=== PATIENT | female | born 1960 | race Caucasian/White ===

== ENCOUNTER 2016-12-26 16:01 | Emergency (ER) | payer MEDICAID ==
[~2016-12-26] VITALS: Ht 165.1 cm; Wt 122.0 kg
[2016-12-26 16:45] VITALS: BP 181/87; PULSE 60; RESP 16; TEMP 98; O2SAT 99
--- NOTE | 2016-12-26 18:56 | PD ---
HPI Chief Complaint: Musculoskeletal Complaint Time Seen by Provider: 18:46 Travel History International Travel<30 days: No Contact w/Intl Traveler<30days: No Traveled to known affect area: No History of Present Illness HPI The patient was seen and examined in the presence of the nurse. This patient complains of right sided back pain. Duration is one week. She woke up with it one morning. There was no injury. She denies cough or shortness of breath or fever. Moving her torso makes the pain worse. Severity is moderate. No alleviating factors. PFSH Past Medical History Asthma: Yes Anxiety: Yes (MYSOPHOBIA) High Cholesterol: Yes Psychiatric: Yes (MYSOPHOBIA:FEAR OF GERMS) Tetanus Vaccination: Unknown Influenza Vaccination: Yes ?: Not Past Surgical History Joint Replacement: Yes (LEFT HIP) Social History Alcohol Use: No Tobacco Use: Yes (TRYING TO QUIT) Substance Use: No Allergies-Medications (Allergen,Severity, Reaction): Coded Allergies: No Known Allergies (Unverified , 12/26/16) Review of Systems General / Constitutional: No: Fever Eyes: No: Visual changes HENT: No: Headaches Cardiovascular: No: Chest Pain or Discomfort Respiratory: No: Shortness of Breath Gastrointestinal: No: Abdominal Pain Genitourinary: No: Dysuria Musculoskeletal: Positive: Pain Skin: No Rash Neurologic: No: Weakness Psychiatric: No: Depression Endocrine: No: Polydipsia Hematologic/Lymphatic: No: Easy Bruising Physical Exam Narrative GENERAL: Well-nourished, well-developed patient in no apparent distress. SKIN: Warm and dry. HEAD: Atraumatic. Normocephalic. EYES: Pupils equal and round. No scleral icterus. No injection or drainage. ENT: No nasal bleeding or discharge. Mucous membranes pink and moist. NECK: Trachea midline. No JVD. CARDIOVASCULAR: Regular rate and rhythm. No murmur appreciated. RESPIRATORY: No accessory muscle use. Clear to auscultation. Breath sounds equal bilaterally. GASTROINTESTINAL: Abdomen soft, non-tender, nondistended. Hepatic and splenic margins not palpable. MUSCULOSKELETAL: No obvious deformities. No clubbing. No cyanosis. No edema. Examination the back reveals no midline tenderness. There is no bruising or muscle spasm or asymmetry. She has readily reproducible tenderness of the right mid back underneath the right scapula. This reproduces her pain complaint. NEUROLOGICAL: Awake and alert. No obvious cranial nerve deficits. Motor grossly within normal limits. Normal speech. PSYCHIATRIC: Appropriate mood and affect; insight and judgment normal. Data Data Last Documented VS Vital Signs Date Time Temp Pulse Resp B/P Pulse Ox O2 Delivery O2 Flow Rate FiO2 12/26/16 16:45 98.0 60 16 181/87 99 MDM Medical Decision Making Medical Screen Exam Complete: Yes Emergency Medical Condition: Yes Medical Record Reviewed: Yes Differential Diagnosis Muscle spasm, sciatica, nonspecific musculoskeletal pain, PE Narrative Course I have reviewed the patient's electronic medical record. Unclear why this patient has one week of right sided mid back pain. It is readily reproducible with palpation. She has a heart rate of 60 and excellent saturations and is not short of breath, all of these things lead me away from a diagnosis of PE. She has no history of blood clot. She had hip surgery but that was 3 months ago. She is ambulatory and active. I am ordering her an injection of morphine and Zofran for symptom relief. I'm going to obtain a chest x-ray. Case is checked out to Dr. Chen at 7 PM to assist with disposition after evaluation is complete. Edvin Siu MD Dec 26, 2016 18:56
[2016-12-26] MEDS ORDERED: KETOROLAC TROMETHAMINE 60 MG/2 ML (IM) VIAL IM ONE (19:00)
[2016-12-26] MEDS ORDERED: ONDANSETRON HCL 4 MG/2 ML VIAL IM ONE (19:00)
[2016-12-26] MEDS ORDERED: MORPHINE SULFATE 4 MG/ML INJ IM ONE (19:00)
[2016-12-26] MEDS ORDERED: SYMB160A INH (19:07)
[2016-12-26] MEDS ORDERED: ROPI2TAB PO (19:07)
[2016-12-26] MEDS ORDERED: GABA100C4 PO (19:07)
[2016-12-26] MEDS ORDERED: TRAZ100T4 PO (19:07)
[2016-12-26] MEDS ORDERED: IMIP50TA PO (19:07)
--- NOTE | 2016-12-26 19:17 | PD ---
Physical Exam Date Seen by Provider: Dec 26, 2016 Time Seen by Provider: 19:16 Narrative Accepted in transfer of care from Dr. Siu GENERAL: Well-developed well-nourished female appears mildly anxious in no respiratory distress SKIN: Warm and dry. HEAD: Normocephalic. EYES: No scleral icterus. No injection or drainage. NECK: Supple, trachea midline. No JVD or lymphadenopathy. CARDIOVASCULAR: Regular rate and rhythm without murmurs, gallops, or rubs. RESPIRATORY: Breath sounds equal bilaterally. No accessory muscle use. GASTROINTESTINAL: Abdomen soft, non-tender, nondistended. MUSCULOSKELETAL: No cyanosis, or edema. BACK: Reproducible tenderness to the right medial scapula musculature without ecchymosis no vesicular rash no crepitus no induration no erythema no fluctuance without obvious deformity. No CVA tenderness. Data Data Last Documented VS Vital Signs Date Time Temp Pulse Resp B/P Pulse Ox O2 Delivery O2 Flow Rate FiO2 12/26/16 22:52 52 18 161/75 99 Room Air 12/26/16 16:45 98.0 Orders Ondansetron Inj (Zofran Inj) (12/26/16 19:00) Ketorolac Inj (Toradol Inj) (12/26/16 19:00) Morphine Inj (Morphine Inj) (12/26/16 19:00) Chest, Single Ap (12/26/16 ) ^ Saline Lock (12/26/16 20:23) D-Dimer (12/26/16 20:23) Basic Metabolic Panel (Bmp) (12/26/16 20:23) Ct Pulmonary Angiogram (12/26/16 ) Sodium Chlorid 0.9% 500 Ml Inj (Ns 500 M (12/26/16 21:45) Iohexol 350 Inj (Omnipaque 350 Inj) (12/26/16 22:55) Labs Laboratory Tests Test 12/26/16 20:30 D-Dimer Quantitative (PE/DVT) 0.76 MG/L FEU Sodium Level 143 MEQ/L Potassium Level 3.8 MEQ/L Chloride Level 108 MEQ/L Carbon Dioxide Level 27.1 MEQ/L Anion Gap 8 MEQ/L Blood Urea Nitrogen 14 MG/DL Creatinine 0.78 MG/DL Estimat Glomerular Filtration 77 ML/MIN Rate Random Glucose 123 MG/DL Calcium Level 9.6 MG/DL [facility] Medical Record Reviewed: Yes Supervised Visit with EMELINA: No Interpretation(s) d-dimer, 0.76, elevated Last Impressions Chest X-Ray 12/26/16 0000 Signed Impressions: Service Date/Time: Monday, December 26, 2016 18:58 - CONCLUSION: Cardiomegaly. Sav Sánchez MD CBC & BMP Diagram 12/26/16 20:30 CT pulmonary angiogram: CONCLUSION: 1. No pulmonary blister. 2. 7 mm nodule in the right lower lobe. This is nonspecific. It can be followed with a noncontrast CT examination in 6 months. 3. Mild pericardial effusion. 4. Left adrenal gland adenomas. Sav Sánchez MD on December 26, 2016 at 22:58 Board Certified Radiologist. This report was verified electronically. Differential Diagnosis Please refer Dr. Siu's dictation Narrative Course Accepted in transfer of care from Dr. Siu follow-up of pending chest x-ray and patient disposition Chest x-ray reveals cardiomegaly otherwise no obvious abnormality; patient is informed of imaging results and states that she is very fearful she has a blood clot at this point time she is not tachycardic she has reproducible pain suspicion for PE is low however patient is at 3 months status post hip replacement and did have a fall within the past 2 weeks without chest injury. Patient does complain of painful respirations secondary to increases pain in her back but is not complaining of shortness of breath. No report of hemoptysis or fever. Will proceed with d-dimer. D-dimer elevated we'll proceed with CT pulmonary angiogram CT pulmonary angiogram negative for PE nodule noted with recommendation for outpatient follow-up in 6 months patient informed of results in stable for outpatient management Diagnosis Primary Impression: Musculoskeletal back pain Additional Impression: Pulmonary nodule Referrals: Primary Care Physician call for appointment Patient Instructions: Narcotic given in the ED, General Instructions Additional Instruction: Take medications as prescribed as needed apply moist heat to area follow-up with your primary care physician return to the emergency department for any concerns or change in condition Med/Other Pt SpecificInfo: Prescription(s) given Scripts Ibuprofen 800 Mg [id number] Mg PO Q8H PRN (PAIN GREATER THAN 6) #12 TAB Ref 0 Prov:Saida Chen MD 12/26/16 Hydrocodone-Acetaminophen (Lortab)5-325 Mg Tab1 Tab PO Q6H PRN (PAIN) #10 TAB Ref 0 Prov:Saida Chen MD 12/26/16 Methocarbamol (Robaxin)750 Mg [id number] Mg PO Q6HR #12 TAB Ref 0 Prov:Saida Chen MD 12/26/16 Disposition: 01 DISCHARGE HOME Condition: Stable Saida Chen MD Dec 26, 2016 19:17
--- NOTE | 2016-12-26 19:19 | RADHPO ---
EXAM DATE/TIME: 12/26/2016 18:58 [facility] COMPARISON: No previous studies available for comparison. INDICATIONS : Right sided chest pain that started a week ago. MEDICAL HISTORY : Asthma. SURGICAL HISTORY : None. ENCOUNTER: Initial ACUITY: 1 week PAIN SCORE: 10/10 LOCATION: Right chest. FINDINGS: The heart size is enlarged. The lungs are grossly clear. Significant effusion is not seen. CONCLUSION: Cardiomegaly. Sav Sánchez MD on December 26, 2016 at 19:16 Board Certified Radiologist. This report was verified electronically.
[2016-12-26 20:55] LABS: POTASSIUM 3.8 MEQ/L (3.5-5.1)
[2016-12-26 21:00] LABS: BICARBONATE 27.1 MEQ/L (21.0-32.0)
[2016-12-26] MEDS ORDERED: SODIUM CHLORID 0.9% 500 ML INJ 500 ML IV ONE (21:45)
[2016-12-26 22:52] VITALS: BP 161/75; PULSE 52; RESP 18; O2SAT 99
[2016-12-26] MEDS ORDERED: IOHEXOL 350 MG/ML 10 ML VIAL (for RAD DIAG) IV ONE (22:55)
--- NOTE | 2016-12-26 23:06 | RADHPO ---
EXAM DATE/TIME: 12/26/2016 22:31 [facility] COMPARISON: No previous studies available for comparison. INDICATIONS : Short of breath. IV CONTRAST: 65 cc Omnipaque 350 (iohexol) IV RADIATION DOSE: 21.91 CTDIvol (mGy) MEDICAL HISTORY : Asthma SURGICAL HISTORY : None. ENCOUNTER: Initial ACUITY: 1 day PAIN SCALE: 4/10 LOCATION: cranial TECHNIQUE: Volumetric scanning of the chest was performed using a pulmonary embolism protocol MIP images were re constructed. Using automated exposure control and adjustment of the mA and/or kV according to patien t size, radiation dose was kept as low as reasonably achievable to obtain optimal diagnostic quality images. FINDINGS: PULMONARY ARTERIES: No filling defects are seen in the pulmonary arteries through the segmental level. LUNGS: There is a 7 mm nodule in the posterior right lower lobe. There some patchy areas of increased densit y seen in the lateral right upper lobe and minimally at the posterior bases. These areas likely repre sent atelectasis. PLEURAE: There is no pleural thickening or pleural effusion. MEDIASTINUM: There is good visualization of the great vessels of the middle mediastinum. No evidence of mediastin al or hilar adenopathy/mass. There is a mild pericardial effusion. MUSCULOSKELETAL: Within normal limits for patient age. MISCELLANEOUS: The visualized upper abdominal organs demonstrate 2 left adrenal masses. The one at the medial limb m easures 3.2 cm dimension and -15 Hounsfield units. The mass at the lateral limb measures 1.7 cm and 4 Hounsfield units. These are both consistent with adenomas. no acute abnormality. CONCLUSION: 1. No pulmonary blister. 2. 7 mm nodule in the right lower lobe. This is nonspecific. It can be followed with a noncontrast CT examination in 6 months. 3. Mild pericardial effusion. 4. Left adrenal gland adenomas. Sav Sánchez MD on December 26, 2016 at 22:58 Board Certified Radiologist. This report was verified electronically.
[2016-12-26] MEDS ORDERED: ROBA750T PO (23:12)
[2016-12-26] MEDS ORDERED: IBUP800T23 PO (23:12)
[2016-12-26] MEDS ORDERED: HYDR-3533 PO (23:12)
== END 2016-12-26 23:28 | disposition home or self-care (01) ==
LOC: PHED 16:01 → PHEFT 23:28
DX: M54.6 Pain in thoracic spine (principal); R91.1 Solitary pulmonary nodule; E78.00 Pure hypercholesterolemia, unspecified; Z72.0 Tobacco use; Z87.09 Personal history of other diseases of the respiratory system; Z86.59 Personal history of other mental and behavioral disorders
CPT/HCPCS: 71010; 71275; 80048; 85379; 96360; 96372; 99284; J1885; J2270; J2405; J7040; Q9967

== ENCOUNTER 2017-01-17 11:39 | Emergency (ER) | payer MEDICAID ==
[~2017-01-17] VITALS: Ht 165.1 cm; Wt 121.0 kg
[~2017-01-17 11:39] MED LIST: GABA100C4 PO; HYDR-3533 PO; IBUP800T23 PO; IMIP50TA PO; ROBA750T PO; ROPI2TAB PO; SYMB160A INH; TRAZ100T4 PO
[2017-01-17 11:44] VITALS: BP 148/94; PULSE 95; RESP 20; TEMP 98.2; O2SAT 97
--- NOTE | 2017-01-17 12:30 | PD ---
HPI Chief Complaint: Musculoskeletal Complaint Time Seen by Provider: 12:30 Travel History International Travel<30 days: No Contact w/Intl Traveler<30days: No Traveled to known affect area: No History of Present Illness HPI 56-year-old female presents the emergency department with ongoing right-sided upper back and shoulder discomfort which she's had approximately one month. Patient was seen in the middle of December with similar complaints, and underwent a full workup including chest x-ray and CT scan without significant findings. Patient was treated on an outpatient basis with ibuprofen , Lortab, and Flexeril. States this treatment did not help whatsoever. She continues to have pain, difficulty with moving her right arm, and difficulty sleeping secondary to spasms in her right shoulder. Fever, chills, rash, or other symptoms. Patient does have a history of Lyme disease for which she was treated in a prolonged course in [place] several years ago. Patient denies injury for the current symptoms. Patient describes the pain as a dull ache which is worse with movement. She has muscle spasm but no numbness or tingling. Her pain is moderate. She has no known drug allergies. PFSH Past Medical History Asthma: Yes Anxiety: Yes (MYSOPHOBIA) High Cholesterol: Yes Psychiatric: Yes (MYSOPHOBIA:FEAR OF GERMS) ?: Not Past Surgical History Joint Replacement: Yes (LEFT HIP) Social History Alcohol Use: No Tobacco Use: Yes (TRYING TO QUIT) Substance Use: No Allergies-Medications (Allergen,Severity, Reaction): Coded Allergies: No Known Allergies (Unverified , 01/17/17) Reported Meds & Prescriptions Reported Meds & Active Scripts Active Ibuprofen 800 Mg Tab 800 Mg PO Q8H PRN Lortab (Hydrocodone-Acetaminophen) 5-325 Mg Tab 1 Tab PO Q6H PRN Robaxin (Methocarbamol) 750 Mg Tab 750 Mg PO Q6HR Reported Imipramine HCL (Imipramine HCl) 50 Mg Tab 50 Mg PO HS Gabapentin 100 Mg Cap 100 Mg PO TID Trazodone (Trazodone HCl) 100 Mg Tab 100 Mg PO HS Ropinirole 2 Mg Tab 2 Mg PO HS Symbicort Inh (Budesonide/Formoterol Fumarate) 160-4.5 Mcg/Act Aero 1 Puff INH Q12HR Review of Systems Except as stated in HPI: all other systems reviewed are Neg General / Constitutional: No: Fever Eyes: No: Visual changes HENT: No: Headaches Cardiovascular: No: Chest Pain or Discomfort Respiratory: No: Shortness of Breath Gastrointestinal: No: Abdominal Pain Genitourinary: No: Dysuria Musculoskeletal: No: Pain Skin: No Rash Neurologic: No: Weakness Psychiatric: No: Depression Endocrine: No: Polydipsia Hematologic/Lymphatic: No: Easy Bruising Physical Exam Narrative GENERAL: Patient appears in mild to moderate distress. SKIN: Warm and dry. Normal color. Normal turgor. No rash. HEAD: Atraumatic. Normocephalic. EYES: Pupils equal and round. No scleral icterus. No injection or drainage. ENT: No nasal bleeding or discharge. Mucous membranes pink and moist. Pharynx is normal. Airway is patent. NECK: Trachea midline. No JVD. Supple and nontender without significant lymphadenopathy. CARDIOVASCULAR: Regular rate and rhythm. RESPIRATORY: No accessory muscle use. Clear to auscultation. Breath sounds equal bilaterally. GASTROINTESTINAL: Abdomen soft, non-tender, nondistended. Hepatic and splenic margins not palpable. MUSCULOSKELETAL: Extremities without clubbing, cyanosis, or edema. No obvious deformities. Patient has soft tissue tenderness and spasm on the right upper shoulder, trapezius, subscapularis, and scalenes which is reproducible and consistent with the patient's current chief complaint. Range of motion is full with limited only by discomfort. Patient has normal vp & general counsel strength and sensation in the right arm. NEUROLOGICAL: Awake and alert. No obvious cranial nerve deficits. Motor grossly within normal limits. Five out of 5 muscle strength in the arms and legs. Normal speech. PSYCHIATRIC: Appropriate mood and affect; insight and judgment normal. Data Data Last Documented VS Vital Signs Date Time Temp Pulse Resp B/P Pulse Ox O2 Delivery O2 Flow Rate FiO2 01/17/17 11:44 98.2 95 20 148/94 97 MDM Medical Decision Making Medical Screen Exam Complete: Yes Emergency Medical Condition: Yes Differential Diagnosis Right upper back spasm. Right shoulder spasm. Possible Lyme disease flare. Narrative Course Patient is felt to be medically stable at time of exam. Based on the patient's history and physical do not feel further radiographic imaging or labs are necessary at this time. Patient will be treated with a course of prednisone with tapering over the next 12 days. Patient also is given Norflex 100 mg twice a day #20. Patient is also given a prescription for extra strength Tylenol 500 mg 2 tabs every 6 hours when necessary pain. Patient is given a course of amoxicillin 875 twice a day 2 weeks. Patient is recommended to follow with her primary care physician in the next 2 weeks to ensure improvement. Patient may need referral to either infectious disease or rotary screen printing machine operator with her history of Lyme disease in the past. 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 Patient will be treated with a course of prednisone with tapering over the next 12 days. Patient also is given Norflex 100 mg twice a day #20. Patient is also given a prescription for extra strength Tylenol 500 mg 2 tabs every 6 hours when necessary pain. Patient is given a course of amoxicillin 875 twice a day 2 weeks. Patient is recommended to follow with her primary care physician in the next 2 weeks to ensure improvement. Patient may need referral to either infectious disease or rotary screen printing machine operator with her history of Lyme disease in the past. Med/Other Pt SpecificInfo: Prescription(s) given Disposition: 01 DISCHARGE HOME Condition: Stable Bubba Mann Jan 17, 2017 12:30
[2017-01-17] MEDS ORDERED: PRED10PA2 PO (12:43)
[2017-01-17] MEDS ORDERED: EXTR500C PO (12:43)
[2017-01-17] MEDS ORDERED: ORPH100T99 PO (12:43)
[2017-01-17] MEDS ORDERED: AMOX875T PO (12:43)
== END 2017-01-17 12:52 | disposition home or self-care (01) ==
LOC: PHED 11:39 → PHEFT 12:52
DX: M54.9 Dorsalgia, unspecified (principal); A69.23 Arthritis due to Lyme disease; Z96.642 Presence of left artificial hip joint; Z72.0 Tobacco use; F40.228 Other natural environment type phobia; J45.909 Unspecified asthma, uncomplicated
CPT/HCPCS: 99283

== ENCOUNTER 2017-01-27 13:58 | Emergency (ER) | payer MEDICAID ==
[~2017-01-27] VITALS: Ht 170.2 cm; Wt 95.4 kg
[~2017-01-27 13:58] MED LIST changes: +AMOX875T PO; +EXTR500C PO; +ORPH100T99 PO; +PRED10PA2 PO
[2017-01-27 14:25] VITALS: BP 131/64; PULSE 65; RESP 24; TEMP 98.7; O2SAT 99
[2017-01-27 14:30] VITALS: O2SAT 99
[2017-01-27] MEDS ORDERED: LORazepam 2 MG/ML VIAL IV PUSH ONE (14:30)
--- NOTE | 2017-01-27 14:46 | PD ---
HPI Chief Complaint: Anxiety Time Seen by Provider: 14:26 Travel History International Travel<30 days: No Contact w/Intl Traveler<30days: No Traveled to known affect area: No History of Present Illness HPI 56-year-old female complains of shortness of breath, chest pain, upper back pain. Patient was seen in emergency room a month ago for the pain. D-dimer was elevated 0.76. CT pulmonary angiogram done a month ago negative for PE. Mild pericardial effusion. Patient was discharged home with prescription for hydrocodone, Motrin and Robaxin. Patient was seen in emergency room 10 days ago for chest pain and back pain again. Patient is given prescription for amoxicillin 875 twice a day for 2 weeks, Norflex and prednisone. Patient states that she had persistent pain despite taking the medications. Patient states that she has increasing shortness of breath today. Patient denies any fever coughing congestion. Patient denies abdominal pain. Patient denies any nausea vomiting diarrhea. Patient states the pain is sharp pain intermittent pain across anterior chest and right upper back around the scapular area. Patient denies any recent injury. On a scale of 1-10 the pain is an 8. PFSH Past Medical History Asthma: Yes Anxiety: Yes (Mysophobia) High Cholesterol: Yes Diminished Hearing: No Psychiatric: Yes (MYSOPHOBIA:FEAR OF GERMS) Tetanus Vaccination: < 5 Years Influenza Vaccination: Yes ?: Not Menopausal: Yes Past Surgical History Joint Replacement: Yes (Lt. hip) Social History Alcohol Use: No Tobacco Use: No Substance Use: No Allergies-Medications (Allergen,Severity, Reaction): Coded Allergies: No Known Allergies (Unverified , 01/27/17) Reported Meds & Prescriptions Reported Meds & Active Scripts Active Vistaril (Hydroxyzine Pamoate) 25 Mg Cap 25 Mg PO TID PRN Amoxicillin 875 Mg Tab 875 Mg PO BID Prednisone (48) 10 mg tab Dose Pack (Prednisone) 10 Mg Dspk 10 Mg PO DIRECTED Orphenadrine CR (Orphenadrine Citrate) 100 Mg Tab 100 Mg PO Q12HR Acetaminophen Extra Strength (Acetaminophen) 500 Mg Cap 1,000 Mg PO Q6H PRN Ibuprofen 800 Mg Tab 800 Mg PO Q8H PRN Lortab (Hydrocodone-Acetaminophen) 5-325 Mg Tab 1 Tab PO Q6H PRN Robaxin (Methocarbamol) 750 Mg Tab 750 Mg PO Q6HR Reported Imipramine HCL (Imipramine HCl) 50 Mg Tab 50 Mg PO HS Gabapentin 100 Mg Cap 100 Mg PO TID Trazodone (Trazodone HCl) 100 Mg Tab 100 Mg PO HS Ropinirole 2 Mg Tab 2 Mg PO HS Review of Systems General / Constitutional: No: Fever Eyes: No: Visual changes HENT: No: Headaches Cardiovascular: Positive: Chest Pain or Discomfort Respiratory: Positive: Shortness of Breath Gastrointestinal: No: Abdominal Pain Genitourinary: No: Dysuria Musculoskeletal: No: Pain Skin: No Rash Neurologic: No: Weakness Psychiatric: No: Depression Endocrine: No: Polydipsia Hematologic/Lymphatic: No: Easy Bruising Physical Exam Narrative GENERAL: Well-nourished, well-developed patient. SKIN: Warm and dry. HEAD: Normocephalic. EYES: No scleral icterus. No injection or drainage. NECK: Supple, trachea midline. No JVD or lymphadenopathy. CARDIOVASCULAR: Regular rate and rhythm without murmurs, gallops, or rubs. RESPIRATORY: Breath sounds equal bilaterally. No accessory muscle use. GASTROINTESTINAL: Abdomen soft, non-tender, nondistended. MUSCULOSKELETAL: No cyanosis, or edema. BACK: Nontender without obvious deformity. No CVA tenderness. Neurologic exam normal. Data Data Last Documented VS Vital Signs Date Time Temp Pulse Resp B/P Pulse Ox O2 Delivery O2 Flow Rate FiO2 01/27/17 15:45 59 18 144/59 94 Room Air 01/27/17 14:25 98.7 Orders Electrocardiogram (01/27/17 14:26) Complete Blood Count With Diff (01/27/17 14:26) Comprehensive Metabolic Panel (01/27/17 14:26) Creatine Kinase (Cpk) (01/27/17 14:26) Troponin I (01/27/17 14:26) Prothrombin Time / Inr (Pt) (01/27/17 14:26) Act Partial Throm Time (Ptt) (01/27/17 14:26) D-Dimer (01/27/17 14:26) Thyroid Stimulating Hormone (01/27/17 14:26) Chest, Single Ap (01/27/17 14:26) Iv Access Insert/Monitor (01/27/17 14:26) Ecg Monitoring (01/27/17 14:26) Oximetry (01/27/17 14:26) Lorazepam Inj (Ativan Inj) (01/27/17 14:30) Labs Laboratory Tests Test 01/27/17 14:20 White Blood Count 11.9 TH/MM3 Red Blood Count 5.96 MIL/MM3 Hemoglobin 16.6 GM/DL Hematocrit 50.8 % Mean Corpuscular Volume 85.1 FL Mean Corpuscular Hemoglobin 27.8 PG Mean Corpuscular Hemoglobin 32.7 % Concent Red Cell Distribution Width 16.6 % Platelet Count 279 TH/MM3 Mean Platelet Volume 8.4 FL Neutrophils (%) (Auto) 84.0 % Lymphocytes (%) (Auto) 13.7 % Monocytes (%) (Auto) 1.8 % Eosinophils (%) (Auto) 0.2 % Basophils (%) (Auto) 0.3 % Neutrophils # (Auto) 10.1 TH/MM3 Lymphocytes # (Auto) 1.6 TH/MM3 Monocytes # (Auto) 0.2 TH/MM3 Eosinophils # (Auto) 0.0 TH/MM3 Basophils # (Auto) 0.0 TH/MM3 CBC Comment DIFF FINAL Differential Comment Prothrombin Time 10.2 SEC Prothromb Time International 0.9 RATIO Ratio Activated Partial 25.1 SEC Thromboplast Time Sodium Level 139 MEQ/L Potassium Level 4.5 MEQ/L Chloride Level 103 MEQ/L Carbon Dioxide Level 25.9 MEQ/L Anion Gap 10 MEQ/L Blood Urea Nitrogen 11 MG/DL Creatinine 0.93 MG/DL Estimat Glomerular Filtration 63 ML/MIN Rate Random Glucose 136 MG/DL Calcium Level 9.9 MG/DL Total Bilirubin 0.4 MG/DL Aspartate Amino Transf 6 U/L (AST/SGOT) Alanine Aminotransferase 16 U/L (ALT/SGPT) Alkaline Phosphatase 96 U/L Total Creatine Kinase 28 U/L Troponin I LESS THAN 0.02 NG/ML Total Protein 8.0 GM/DL Albumin 3.9 GM/DL Thyroid Stimulating Hormone 1.240 uIU/ML [address] [place] [address] Medical Decision Making Medical Screen Exam Complete: Yes Emergency Medical Condition: Yes Interpretation(s) 1446 PM. EKG shows sinus rhythm nonspecific ST-T wave change. 1521 PM. Last Impressions Chest X-Ray 01/27/17 1426 Signed Impressions: Service Date/Time: Friday, January 27, 2017 14:41 - CONCLUSION: Compensated cardiomegaly otherwise negative. Ambrose Dick MD FACR 1521 PM. CBC WBC 11.9. Hemoglobin 16.6 hematocrit 50.8. 84 neutrophil. CMP within normal limit. 1534 PM. Cardiac enzymes are normal. Differential Diagnosis Differential diagnosis including anxiety panic attack, musculoskeletal pain, angina, AR, hemopneumothorax. Narrative Course 56-year-old male with persistent chest pain, upper back pain, shortness of breath. Ativan 1 mg IV given. Diagnosis Primary Impression: Atypical chest pain Additional Impression: Anxiety Patient Instructions: General Instructions Additional Instructions: Vistaril as needed. Ibuprofen and muscle relaxants as needed for pain. Follow- up with local physician. Return if worse. Med/Other Pt SpecificInfo: Prescription(s) given Scripts Cyclobenzaprine (Flexeril)10 Mg Tab10 Mg PO TID #90 TAB Ref 0 Prov:Jose Ramon Mejia MD 01/27/17 Hydroxyzine Pamoate (Vistaril)25 Mg Cap25 Mg PO TID PRN (ANXIETY) #30 CAP Ref 0 Prov:Jose Ramon Mejia MD 01/27/17 Disposition: 01 DISCHARGE HOME Condition: Stable Jose Ramon Mejia MD Jan 27, 2017 14:46 Jose Ramon Mejia MD Jan 27, 2017 14:46
--- NOTE | 2017-01-27 15:00 | RADHPO ---
EXAM DATE/TIME: 01/27/2017 14:41 [place] COMPARISON: CHEST SINGLE AP, December 26, 2016, 18:58. INDICATIONS : Short of breath MEDICAL HISTORY : None. SURGICAL HISTORY : None. ENCOUNTER: Initial ACUITY: 2 days PAIN SCORE: 10/10 LOCATION: Bilateral chest FINDINGS: The lungs are clear. The heart is minimally enlarged. The pulmonary vascularity is normal. There is n o evidence for infiltrate or failure. The portion of the bony skeleton visualized is unremarkable. CONCLUSION: Compensated cardiomegaly otherwise negative. Ambrose Dick MD FACR on January 27, 2017 at 14:58 Board Certified Radiologist. This report was verified electronically.
[2017-01-27 15:12] LABS: CHLORIDE 103 MEQ/L (98-107); POTASSIUM 4.5 MEQ/L (3.5-5.1); SODIUM (NA) 139 MEQ/L (136-145)
[2017-01-27 15:15] LABS: AUTOMATED NEUTROPHIL # 10.1 TH/MM3 (1.8-7.7); BASOPHIL % 0.3 % (0.0-2.0); EOSINOPHIL % 0.2 % (0.0-4.0); HEMATOCRIT 50.8 % (35.0-46.0); HEMO FLAGS DIFF FINAL; LYMPH % 13.7 % (9.0-44.0); LYMPHOCYTE # 1.6 TH/MM3 (1.0-4.8); MEAN CELL VOLUME 85.1 FL (80.0-100.0); MEAN CORPUSCULAR HEMOGLOBIN 27.8 PG (27.0-34.0); MEAN CORPUSCULAR HGB CONC 32.7 % (32.0-36.0); MONO % 1.8 % (0.0-8.0); PLATELET COUNT 279 TH/MM3 (150-450); RED BLOOD COUNT 5.96 MIL/MM3 (4.00-5.30); RED CELL DISTRIBUTION WIDTH 16.6 % (11.6-17.2); WHITE BLOOD COUNT 11.9 TH/MM3 (4.0-11.0)
[2017-01-27 15:16] LABS: ANION GAP 10 MEQ/L (5-15); BICARBONATE 25.9 MEQ/L (21.0-32.0); BLOOD UREA NITROGEN 11 MG/DL (7-18)
[2017-01-27 15:19] LABS: ALT (GPT) 16 U/L (10-53); APTT (PATIENT) 25.1 SEC (24.3-30.1); AST (GOT) 6 U/L (15-37); GLOMERULAR FILTRATION RATE 63 ML/MIN (>89); INTERNATIONAL NORMALIZED RATIO 0.9 RATIO; PROTHROMBIN TIME - PATIENT 10.2 SEC (9.8-11.6)
[2017-01-27 15:21] LABS: TOTAL BILIRUBIN ADULT 0.4 MG/DL (0.2-1.0)
[2017-01-27 15:22] LABS: ALKALINE PHOSPHATASE 96 U/L (45-117)
[2017-01-27 15:28] LABS: CREATINE KINASE 28 U/L (26-192)
[2017-01-27] MEDS ORDERED: VIST25CA PO (15:39)
[2017-01-27 15:45] VITALS: BP 144/59; PULSE 59; RESP 18; O2SAT 94
[2017-01-27] MEDS ORDERED: CYCL1TAB29 PO (15:51)
--- NOTE | 2017-01-27 21:14 | EKG ---
Date Performed: 01/27/2017 Time Performed: 14:19:14 PTAGE: 56 years EKG: Sinus rhythm Normal ECG NO PREVIOUS TRACING DOCTOR: Mook Peterson Interpretating Date/Time 01/27/2017 21:13:18
== END 2017-01-27 15:55 | disposition home or self-care (01) ==
LOC: PHED 13:58
DX: R07.89 Other chest pain (principal); F41.9 Anxiety disorder, unspecified
CPT/HCPCS: 71010; 80053; 82550; 84443; 84484; 85025; 85379; 85610; 85730; 93005; 96374; 99285; J2060